=== PATIENT | female | born 1980 | race Caucasian/White ===

== ENCOUNTER 2016-07-11 09:33 | Observation (INO) | payer MEDICAID ==
[~2016-07-11] VITALS: Ht 157.5 cm; Wt 60.0 kg
[~2016-07-11 09:33] MED LIST: ONDANSETRON HCL 4 MG/2 ML VIAL IV PUSH ONE; PREN0.01; PROPOFOL 200 MG/20 ML AMP IV ONE
[2016-07-11 09:35] VITALS: BP 156/87; PULSE 78; RESP 17; TEMP 98.6; O2SAT 99
[2016-07-11 09:45] VITALS: BP 134/90; PULSE 72; RESP 16; O2SAT 100
[2016-07-11] MEDS ORDERED: SODIUM CHLOR 0.9% 1000 ML INJ 1,000 ML IV SCH ×2 (09:59→14:30)
[2016-07-11] MEDS ORDERED: ALUMINUM/MAGNESIUM/SIMETH 30 ML CUP PO ONE (10:00)
[2016-07-11] MEDS ORDERED: SODIUM CHLORIDE 0.9% FLUSH 10 ML FLUSH IV FLUSH PRN ×2 (10:00→15:30)
[2016-07-11] MEDS ORDERED: HYDROmorphone HCL PF 1 MG/ML VIAL IVS ONE (10:00)
[2016-07-11] MEDS ORDERED: LIDOCAINE VISCOUS 2% SOLN 15 ML UDC PO ONE (10:00)
[2016-07-11] MEDS ORDERED: ONDANSETRON HCL 4 MG/2 ML VIAL IVP ONE (10:00)
[2016-07-11 10:19] LABS: AUTOMATED NEUTROPHIL # 4.9 TH/MM3 (1.8-7.7); BASOPHIL # 0.1 TH/MM3 (0-0.2); EOSINOPHIL # 0.1 TH/MM3 (0-0.4); HEMO FLAGS DIFF FINAL; LYMPH % 21.9 % (9.0-44.0); LYMPHOCYTE # 1.5 TH/MM3 (1.0-4.8); MEAN CELL VOLUME 85.7 FL (80.0-100.0); MEAN CORPUSCULAR HEMOGLOBIN 29.2 PG (27.0-34.0); MEAN CORPUSCULAR HGB CONC 34.1 % (32.0-36.0); MONO % 6.7 % (0.0-8.0); NEUT % 69.4 % (16.0-70.0); PLATELET COUNT 360 TH/MM3 (150-450); RED BLOOD COUNT 4.08 MIL/MM3 (4.00-5.30); RED CELL DISTRIBUTION WIDTH 12.7 % (11.6-17.2)
[2016-07-11 10:22] LABS: BACTERIA, URINE RARE /hpf; BLOOD, URINE TRACE (NEG); GLUCOSE,URINE NEG (NEG); KETONE, URINE NEG (NEG); MUCUS URINE FEW /lpf (OCC); NITRITE,URINE NEG (NEG); PH, URINE 5.5 (5.0-8.5); SQUAMOUS EPITHELIAL CELL URINE 15 /hpf (0-5); TRANSITIONAL EPI CELLS, URINE <1 /hpf; URINE COLOR YELLOW (YELLW/STRAW)
[2016-07-11 10:23] LABS: COMMENT (UR) CULTURE INDICATED; CULTURE IF INDICATED CULTURE INDICATED
[2016-07-11] MEDS ORDERED: cefTRIAXone INJ 1,000 MG in SODIUM CHLORIDE 0.9% INJ 100 ML IV ONE (10:30)
[2016-07-11 10:34] LABS: ANION GAP 7 MEQ/L (5-15); AST (GOT) 812 U/L (15-37); BICARBONATE 22.7 MEQ/L (21.0-32.0); BLOOD UREA NITROGEN 6 MG/DL (7-18); CHLORIDE 105 MEQ/L (98-107); GLOMERULAR FILTRATION RATE 146 ML/MIN (>89); POTASSIUM 3.5 MEQ/L (3.5-5.1); SODIUM (NA) 135 MEQ/L (136-145)
[2016-07-11 10:37] LABS: ALKALINE PHOSPHATASE 196 U/L (45-117); ALT (GPT) 694 U/L (10-53); TOTAL BILIRUBIN ADULT 0.9 MG/DL (0.2-1.0)
--- NOTE | 2016-07-11 10:44 | PD ---
HPI Chief Complaint: Abdominal Pain Time Seen by Provider: 09:41 Travel History International Travel<30 days: No Contact w/Intl Traveler<30days: No Traveled to known affect area: No History of Present Illness HPI 36-year-old female 3 para 2 last menstruation 2 days prior arrives with right upper quadrant pain for 2 days. It can be severe at times. There is a sharp quality. When it is severe the patient feels nauseated. No vomiting fever urinary complaint or vaginal bleeding/vaginal discharge reported. Patient has been able to eat. No similar prior events has occurred. She denies a past medical history as well as surgical history. She denies having a primary care provider. There is some radiation to the back on the right side. Cypriot-speaking, translation provided by patient's bilingual son per preference of patient. PFSH Past Medical History Medical History: Denies Significant Hx Influenza Vaccination: No ?: Not LMP: 07/09/16 : 3 Para: 2 Miscarriage: 0 : 0 Past Surgical History Surgical History: No Previous Surgery Social History Alcohol Use: Yes (OCCASINALLY) Tobacco Use: No Substance Use: No Allergies-Medications (Allergen,Severity, Reaction): Coded Allergies: No Known Allergies (Verified Allergy, Mild, 07/12/06) Reported Meds & Prescriptions Reported Meds & Active Scripts Active Reported Vit ( Plus) (Prenat Multivit/Agriculture Specialist/Iron/Folic Ac) Tab Review of Systems Except as stated in HPI: all other systems reviewed are Neg General / Constitutional: No: Fever Gastrointestinal: Positive: Nausea, Abdominal Pain Physical Exam Narrative GENERAL: 36-year-old female pleasant, Cypriot-speaking only, translation services were provided through a online official medical translation services however the patient preferred her son who is bilingual to translate SKIN: Focused skin assessment warm/dry. HEAD: Atraumatic. Normocephalic. EYES: Pupils equal and round. No scleral icterus. No injection or drainage. ENT: No nasal bleeding or discharge. Mucous membranes pink and moist. NECK: Trachea midline. No JVD. CARDIOVASCULAR: Regular rate and rhythm. No murmur appreciated. RESPIRATORY: No accessory muscle use. Clear to auscultation. Breath sounds equal bilaterally. GASTROINTESTINAL: Soft. Positive Dao sign. Percussion along the right flank seems to elicit pain in the anterior abdomen on the right side. Otherwise there is no flank tenderness. MUSCULOSKELETAL: No obvious deformities. No clubbing. No cyanosis. No edema. NEUROLOGICAL: Awake and alert. No obvious cranial nerve deficits. Motor grossly within normal limits. Normal speech. PSYCHIATRIC: Appropriate mood and affect; insight and judgment normal. Data Data Last Documented VS Vital Signs Date Time Temp Pulse Resp B/P Pulse Ox O2 Delivery O2 Flow Rate FiO2 07/11/16 09:45 72 16 134/90 100 Room Air 07/11/16 09:35 98.6 Vital signs reviewed Orders Complete Blood Count With Diff (07/11/16 09:59) Comprehensive Metabolic Panel (07/11/16 09:59) Lipase (07/11/16 09:59) Urinalysis - C+S If Indicated (07/11/16 09:59) Ct Abd/Pel W/O Iv Contrast (07/11/16 09:59) Iv Access Insert/Monitor (07/11/16 09:59) Ecg Monitoring (07/11/16 09:59) Oximetry (07/11/16 09:59) Ondansetron Inj (Zofran Inj) (07/11/16 10:00) Sodium Chlor 0.9% 1000 Ml Inj (Ns 1000 M (07/11/16 09:59) Sodium Chloride 0.9% Flush (Ns Flush) (07/11/16 10:00) Hydromorphone Pf Inj (Dilaudid Pf Inj) (07/11/16 10:00) Al-Mag Hy-Si 40-40-4 Mg/Ml Liq (Mag-Al P (07/11/16 10:00) Lidocaine 2% Viscous (Xylocaine 2% Visco (07/11/16 10:00) Ed Urine Pregnancytest Poc (07/11/16 09:59) Urine Culture (07/11/16 10:03) Ceftriaxone Inj (Rocephin Inj) (07/11/16 10:30) Admit Order (Ed Use Only) (07/11/16 12:23) Labs Laboratory Tests Test 07/11/16 10:03 White Blood Count 7.0 TH/MM3 Red Blood Count 4.08 MIL/MM3 Hemoglobin 11.9 GM/DL Hematocrit 35.0 % Mean Corpuscular Volume 85.7 FL Mean Corpuscular Hemoglobin 29.2 PG Mean Corpuscular Hemoglobin 34.1 % Concent Red Cell Distribution Width 12.7 % Platelet Count 360 TH/MM3 Mean Platelet Volume 8.3 FL Neutrophils (%) (Auto) 69.4 % Lymphocytes (%) (Auto) 21.9 % Monocytes (%) (Auto) 6.7 % Eosinophils (%) (Auto) 1.0 % Basophils (%) (Auto) 1.0 % Neutrophils # (Auto) 4.9 TH/MM3 Lymphocytes # (Auto) 1.5 TH/MM3 Monocytes # (Auto) 0.5 TH/MM3 Eosinophils # (Auto) 0.1 TH/MM3 Basophils # (Auto) 0.1 TH/MM3 CBC Comment DIFF FINAL Differential Comment Urine Color YELLOW Urine Turbidity HAZY Urine pH 5.5 Urine Specific [place] 1.010 Urine Protein NEG mg/dL Urine Glucose (UA) NEG mg/dL Urine Ketones NEG mg/dL Urine Occult Blood TRACE Urine Nitrite NEG Urine Bilirubin NEG Urine Urobilinogen LESS THAN 2.0 MG/DL Urine Leukocyte Esterase LARGE Urine RBC 4 /hpf Urine WBC 19 /hpf Urine Squamous Epithelial 15 /hpf Cells Urine Transitional Epithelial <1 /hpf Cells Urine Amorphous Sediment RARE Urine Bacteria RARE /hpf Urine Mucus FEW /lpf Microscopic Urinalysis Comment CULTURE INDICATED Sodium Level 135 MEQ/L Potassium Level 3.5 MEQ/L Chloride Level 105 MEQ/L Carbon Dioxide Level 22.7 MEQ/L Anion Gap 7 MEQ/L Blood Urea Nitrogen 6 MG/DL Creatinine 0.48 MG/DL Estimat Glomerular Filtration 146 ML/MIN Rate Random Glucose 98 MG/DL Calcium Level 8.2 MG/DL Total Bilirubin 0.9 MG/DL Aspartate Amino Transf 812 U/L (AST/SGOT) Alanine Aminotransferase 694 U/L (ALT/SGPT) Alkaline Phosphatase 196 U/L Total Protein 7.7 GM/DL Albumin 3.9 GM/DL Lipase 129 U/L [facility] Medical Decision Making Medical Screen Exam Complete: Yes Emergency Medical Condition: Yes Medical Record Reviewed: Yes Differential Diagnosis Gastritis, pancreatitis, appendicitis, acute cholecystitis, ascending cholangitis, AAA, perforated viscous, mesenteric ischemia, hepatitis, cystitis, hydronephrosis/hydroureter/nephroureter calculus, mesenteric adenitis, biliary colic Narrative Course CBC & BMP Diagram 07/11/16 10:03 AST 812 ALT 694 Alkaline phosphatase 196 Lipase 129 Urinalysis: UTI present Urine is negative Last 24 hours Impressions Abdomen/Pelvis CT 07/11/16 0959 Signed Impressions: Service Date/Time: Monday, July 11, 2016 10:33 - CONCLUSION: 1. Masslike area within the gallbladder could be a sludgeball versus stone with slight prominence of the common bile duct. 2. Left adnexal mass most likely ovarian and indeterminant could be a complicated cyst. Boone Chamorro MD The patient has patient's LFTs are sufficiently high when coupled with gallbladder abnormality mild gallbladder duct dilation and positive gallbladder Dao sign to warrant admission for further diagnostic evaluation. IV fluids and antiemetics and analgesia ordered. The patient received Rocephin for the presumed UTI. Case discussed with Dr. Potter for general surgery who will consult. Pt to be admitted for probable cholecystitis. Flagyl added. Case d/w Dr Maya for family medicine residency service. Diagnosis Primary Impression: Cholelithiasis Qualified Code: K80.00 - Calculus of gallbladder with cholecystitis without biliary obstruction, unspecified cholecystitis acuity Additional Impressions: LFT elevation Pyuria Admitting Information Admitting Physician Requests: Admit Zaid Clifford MD Jul 11, 2016 10:44
--- NOTE | 2016-07-11 11:03 | RADRPT ---
EXAM DATE/TIME: 07/11/2016 10:33 [facility] COMPARISON: No previous studies available for comparison. INDICATIONS : Abdomen pain. ORAL CONTRAST: No oral contrast ingested. RADIATION DOSE: 5.1 CTDIvol (mGy) MEDICAL HISTORY : None SURGICAL HISTORY : None. ENCOUNTER: Initial ACUITY: 2 days PAIN SCALE: 4/10 LOCATION: Bilateral abdomen. TECHNIQUE: Volumetric scanning of the abdomen and pelvis was performed. Using automated exposure control and ad justment of the mA and/or kV according to patient size, radiation dose was kept as low as reasonably achievable to obtain optimal diagnostic quality images. FINDINGS: CT Abdomen: The liver, spleen, pancreas, kidneys, adrenals are unremarkable. There is no evidence for any appreciable pathological adenopathy, free fluid, or bowel obstruction. The gallbladder demonstra chan an approximate 1.9 cm mass within it possibly a stone versus sludge ball at the most likely etiol ogies and appears slightly distended. Common bile duct measures 8 mm without definite common bile juliana t stones for technique. CT pelvis: There is no evidence for abscess formation, or any significant adenopathy within the pelvi s. There is moderate amount of stool throughout the colon. The appendix appears intact without defini te signs of appendicitis. IUD is identified. There is an approximate 4.5 cm mass in the left adnexa m ost likely ovarian could be a complicated cyst, however is nonspecific. CONCLUSION: 1. Masslike area within the gallbladder could be a sludgeball versus stone with slight prominence of the common bile duct. 2. Left adnexal mass most likely ovarian and indeterminant could be a complicated cyst. Boone Chamorro MD on July 11, 2016 at 10:57 Board Certified Radiologist. This report was verified electronically.
[2016-07-11 12:46] VITALS: BP 130/84; PULSE 75; RESP 16; O2SAT 99
--- NOTE | 2016-07-11 14:12 | HHI.HP ---
HPI Service Family Medicine Primary Care Physician No Primary Care Physician Admission Diagnosis Cholelithiasis, Transaminitis, Poss Cholecystitis Diagnoses: International Travel<30 Days: No Contact w/Intl Traveler<30days: No Known Affected Area: No History of Present Illness Mrs. Moscoso is a 36-year-old female with no significant past medical history presenting to the ED with right upper quadrant abdominal pain. She is strictly Liberian-speaking and interview was performed with interpretation service. She states that for approximately 2 days she has had right upper quadrant pain up to 8 out of 10 on the pain scale with a sharp like quality radiating to her back. Prior to the pain she had no medial high in meat and bread. The pain has been constant since the meal and she has been taking Advil without relief. She endorses some mild nausea but denies any vomiting or diarrhea. She states that she has never had any pain like this before and denies any prior abdominal surgery. Otherwise she has no complaints and denies any fevers, chills, shortness of breath, chest pain, or calf tenderness (Chirag Bright MD R1) Review of Systems Constitutional: DENIES: Fever, Chills Eyes: DENIES: Diplopia Ears, nose, mouth, throat: DENIES: Throat pain, Running Nose Respiratory: DENIES: Cough, Shortness of breath Cardiovascular: DENIES: Chest pain Gastrointestinal: COMPLAINS OF: Abdominal pain, Nausea, DENIES: Diarrhea, Vomiting Genitourinary: DENIES: Dysuria Musculoskeletal: DENIES: Joint pain Integumentary: DENIES: Rash Neurologic: DENIES: Headache (Chirag Bright MD R1) Past Family Social History Past Medical History Denies past medical history Past Surgical History Denies past surgical history Reported Medications Patient reports that she is on control, but cannot recall the name. ( Chirag Bright MD R1) Allergies: Coded Allergies: No Known Allergies (Verified , 07/12/06) Family History Denies family medical history Social History She denies any smoking, alcohol, or illicit drug history. Patient is strictly Liberian-speaking. Full code. (Chirag Bright MD R1) Physical Exam Vital Signs Vital Signs Date Time Temp Pulse Resp B/P Pulse Ox O2 Delivery O2 Flow Rate FiO2 07/11/16 12:46 75 16 130/84 99 Room Air 07/11/16 09:45 72 16 134/90 100 Room Air 07/11/16 09:35 98.6 78 17 156/87 99 Physical Exam GENERAL: Well-nourished, well-developed patient 36-year-old female lying in bed in mild discomfort.. SKIN: Warm and dry. No rash. HEENT: Atraumatic, normocephalic with EOMI. PERRLA. Oropharynx clear without erythema or exudate. Moist mucous membranes with midline uvula. No palpable LAD. No rhinorrhea. CARDIOVASCULAR: Regular rate and rhythm without obvious murmurs, gallops, or rubs. RESPIRATORY: Clear to auscultation bilaterally with no CRW. No increased work of breathing. GASTROINTESTINAL: Abdomen soft, nondistended with positive bowel sounds. Patient tender to palpation in the right upper quadrant to mild palpation with radiation to her back. Positive Dao sign. Nonternder at McBurney's point. No masses appreciated. No rebound tenderness. MUSCULOSKELETAL: No cyanosis or edema. Strength grossly WNL. BACK: Nontender without obvious deformity. No CVA tenderness. NEURO/PSYCH: Afocal. Awake, alert, and oriented x3. Laboratory Laboratory Tests Test 07/11/16 10:03 White Blood Count 7.0 Red Blood Count 4.08 Hemoglobin 11.9 Hematocrit 35.0 Mean Corpuscular Volume 85.7 Mean Corpuscular Hemoglobin 29.2 Mean Corpuscular Hemoglobin 34.1 Concent Red Cell Distribution Width 12.7 Platelet Count 360 Mean Platelet Volume 8.3 Neutrophils (%) (Auto) 69.4 Lymphocytes (%) (Auto) 21.9 Monocytes (%) (Auto) 6.7 Eosinophils (%) (Auto) 1.0 Basophils (%) (Auto) 1.0 Neutrophils # (Auto) 4.9 Lymphocytes # (Auto) 1.5 Monocytes # (Auto) 0.5 Eosinophils # (Auto) 0.1 Basophils # (Auto) 0.1 CBC Comment DIFF FINAL Differential Comment Urine Color YELLOW Urine Turbidity HAZY Urine pH 5.5 Urine Specific [place] 1.010 Urine Protein NEG Urine Glucose (UA) NEG Urine Ketones NEG Urine Occult Blood TRACE Urine Nitrite NEG Urine Bilirubin NEG Urine Urobilinogen LESS THAN 2.0 Urine Leukocyte Esterase LARGE Urine RBC 4 Urine WBC 19 Urine Squamous Epithelial 15 Cells Urine Transitional Epithelial <1 Cells Urine Amorphous Sediment RARE Urine Bacteria RARE Urine Mucus FEW Microscopic Urinalysis Comment CULTURE INDICATED Sodium Level 135 Potassium Level 3.5 Chloride Level 105 Carbon Dioxide Level 22.7 Anion Gap 7 Blood Urea Nitrogen 6 Creatinine 0.48 Estimat Glomerular Filtration 146 Rate Random Glucose 98 Calcium Level 8.2 Total Bilirubin 0.9 Aspartate Amino Transf 812 (AST/SGOT) Alanine Aminotransferase 694 (ALT/SGPT) Alkaline Phosphatase 196 Total Protein 7.7 Albumin 3.9 Lipase 129 Date/Time Procedure Status Source Growth 07/11/16 10:03 Urine Culture Received Urine Clean Catch Pending (Chirag Bright MD R1) Result Diagram: 07/11/16 1003 07/11/16 1003 Imaging Last 72 hours Impressions Abdomen/Pelvis CT 07/11/16 0959 Signed Impressions: Service Date/Time: Monday, July 11, 2016 10:33 - CONCLUSION: 1. Masslike area within the gallbladder could be a sludgeball versus stone with slight prominence of the common bile duct. 2. Left adnexal mass most likely ovarian and indeterminant could be a complicated cyst. Boone Chamorro MD (Chirag Bright MD R1) Assessment and Plan Assessment and Plan Mrs. Moscoso is a 36-year-old female with no significant past medical history presenting to the ED with left upper quadrant abdominal pain concerning for cholecystitis. General surgery was consulted and will take patient to the operating room tonight for laparoscopic cholecystectomy. Code Status Full Discussed Condition With Dr. Clifford, ER physician Dr. Livier Maya (Chirag Bright MD R1) Attending Attestation THIS CASE WAS DISCUSSED WITH THE RESIDENT PHYSICIANS. I HAVE REVIEWED THE RECORD AND AGREE WITH THE ABOVE NOTE AND PLAN OF CARE WAS DISCUSSED. I HAVE AUTHORIZED THE ORDER FOR ADMISSION TO AN IN-PATIENT STATUS. (Germán Maier MD) Problem List: (1) Acute cholecystitis Status: Acute Plan: Patient presenting with right upper quadrant pain and tenderness with CT showing masslike area in the gallbladder concerning for gallstones/sludge. Gen. surgery was consulted and will proceed with laparoscopic versus open cholecystectomy. CBC: WBC 7, H/H 11.9/35, platelets 360 CMP: Sodium 135, AST 81 2, ALT 694, alkaline phosphatase 196 CT abdomen and pelvis: Masslike area within the gallbladder. Possible sludge ball versus stone with slight prominence of the common bile duct. Left adnexal mass likely ovarian in indeterminate; could be complicated cyst. Gen. surgery consulted, appreciate recommendations * Per Dr. Potter, he will plan for laparoscopic versus open cholecystectomy tonight. Medications: Ceftriaxone, Flagyl, Dilaudid received in ER Ceftriaxone 1 mg daily (07/11- ) Flagyl 500 milligrams every 8 hours (07/11- ) Percocet when necessary for pain Normal saline at 100 mL per hour as patient will be nothing by mouth (2) LFT elevation Status: Acute Plan: LFT elevations likely due to acute cholecystitis. Please see plan as above (3) UTI (urinary tract infection) Status: Acute Plan: Patient with urinalysis concerning for possible UTI. Medical team will cover with ceftriaxone. UA: Large leukocyte esterase, 4 rbc, 19 WBC, rare bacteria, trace occult blood UC: Pending Medications: Ceftriaxone 1 g daily (07/11- ) (4) Nutrition, metabolism, and development symptoms Status: Acute Plan: Fluids: Normal saline at 100 mL per hour as patient is nothing by mouth Diet: Nothing by mouth prior to procedure Electrolytes: Sodium 135, continue to monitor DVT prophylaxis: CANDACE/SCDs, pharmacologic prophylaxis contraindicated prior to procedure Prophylaxis: Incentive spirometry with Acapella, Zofran when necessary for nausea or vomiting, Benadryl when necessary for itching, Gloria-Colace when necessary for constipation CM, PT consulted (Chirag Bright MD R1) Physician Certification 2 Midnight Certification Type: Admission for Inpatient Services Order for Inpatient Services The services are ordered in accordance with Medicare regulations or non- Medicare payer requirements, as applicable. In the case of services not specified as inpatient-only, they are appropriately provided as inpatient services in accordance with the 2-midnight benchmark. Estimated LOS (days): 3 3 days is the estimated time the patient will need to remain in the hospital, assuming treatment plan goals are met and no additional complications. Post-Hospital Plan: Home (Chirag Bright MD R1) Chirag Bright MD R1 Jul 11, 2016 14:12 Germán Maier MD Jul 12, 2016 10:51
--- NOTE | 2016-07-11 15:14 | PD.CONS ---
HPI Service General Surgery Consult Requested By Reason for Consult Abdominal pain Primary Care Physician No Primary Care Physician History of Present Illness The patient is a 36-year-old Romansh-speaking female who presents with abdominal pain. Translation is provided by the [employer] mental hygiene consultant service. The patient relates that she has had abdominal pain in the right upper quadrant radiating to the back for about 2 days associated with nausea. She has never had any episodes like this in the past. She denies emesis or diarrhea. No previous abdominal surgical history. The pain relented only after she received pain medication at the hospital. She was noted to have elevation of transaminases and alkaline phosphatase with normal bilirubin. CT of the abdomen and pelvis shows a 1.9 cm sludge ball or stone in the gallbladder with mild gallbladder distention. Review of Systems Constitutional: DENIES: Fever, Chills Eyes: DENIES: Eye inflammation, Eye pain Respiratory: DENIES: Cough, Wheezing Cardiovascular: DENIES: Chest pain, Palpitations Gastrointestinal: COMPLAINS OF: Abdominal pain, Nausea, DENIES: Black stools Integumentary: DENIES: Pruritus, Rash Neurologic: DENIES: Localized weakness, Paresthesias Past Family Social History Past Medical History None Past Surgical History None Reported Medications Vitamins Allergies: Coded Allergies: No Known Allergies (Verified Allergy, Mild, 07/12/06) Active Ordered Medications Current Medications Medications (Trade) Dose Ordered Sig/Kaelyn Route Start Time Stop Time Status Last Admin Sodium Chloride 2 ml 2 ml UNSCH PRN IV FLUSH 07/11/16 10:00 (NS 1000 ml Inj) 1,000 ml @ 125 mls/hr Q8H IV 07/11/16 14:30 07/11/16 14:52 Family History Noncontributory Social History Rare alcohol use. No tobacco or drug use. Physical Exam Vital Signs Vital Signs Date Time Temp Pulse Resp B/P Pulse Ox O2 Delivery O2 Flow Rate FiO2 07/11/16 12:46 75 16 130/84 99 Room Air 07/11/16 09:45 72 16 134/90 100 Room Air 07/11/16 09:35 98.6 78 17 156/87 99 Physical Exam GENERAL: Awake and alert. No acute distress. Cooperative. HEAD: Normocephalic. Atraumatic. EYES: Pupils equal round and reactive to light bilaterally. No scleral icterus. ENT: Moist oral mucosa. NECK: Trachea midline. CHEST: Lungs clear to auscultation bilaterally with no wheezing or rhonchi. No respiratory distress. CARDIOVASCULAR: Regular rate and rhythm. ABDOMEN: Round. Moderate tenderness to palpation in the right upper quadrant with positive Dao sign. EXTREMITIES: No cyanosis or edema. SKIN: Warm, dry, nonjaundiced. Laboratory Laboratory Tests Test 07/11/16 10:03 White Blood Count 7.0 Red Blood Count 4.08 Hemoglobin 11.9 Hematocrit 35.0 Mean Corpuscular Volume 85.7 Mean Corpuscular Hemoglobin 29.2 Mean Corpuscular Hemoglobin 34.1 Concent Red Cell Distribution Width 12.7 Platelet Count 360 Mean Platelet Volume 8.3 Neutrophils (%) (Auto) 69.4 Lymphocytes (%) (Auto) 21.9 Monocytes (%) (Auto) 6.7 Eosinophils (%) (Auto) 1.0 Basophils (%) (Auto) 1.0 Neutrophils # (Auto) 4.9 Lymphocytes # (Auto) 1.5 Monocytes # (Auto) 0.5 Eosinophils # (Auto) 0.1 Basophils # (Auto) 0.1 CBC Comment DIFF FINAL Differential Comment Urine Color YELLOW Urine Turbidity HAZY Urine pH 5.5 Urine Specific [place] 1.010 Urine Protein NEG Urine Glucose (UA) NEG Urine Ketones NEG Urine Occult Blood TRACE Urine Nitrite NEG Urine Bilirubin NEG Urine Urobilinogen LESS THAN 2.0 Urine Leukocyte Esterase LARGE Urine RBC 4 Urine WBC 19 Urine Squamous Epithelial 15 Cells Urine Transitional Epithelial <1 Cells Urine Amorphous Sediment RARE Urine Bacteria RARE Urine Mucus FEW Microscopic Urinalysis Comment CULTURE INDICATED Sodium Level 135 Potassium Level 3.5 Chloride Level 105 Carbon Dioxide Level 22.7 Anion Gap 7 Blood Urea Nitrogen 6 Creatinine 0.48 Estimat Glomerular Filtration 146 Rate Random Glucose 98 Calcium Level 8.2 Total Bilirubin 0.9 Aspartate Amino Transf 812 (AST/SGOT) Alanine Aminotransferase 694 (ALT/SGPT) Alkaline Phosphatase 196 Total Protein 7.7 Albumin 3.9 Lipase 129 Date/Time Procedure Status Source Growth 07/11/16 10:03 Urine Culture Received Urine Clean Catch Pending Result Diagram: 07/11/16 1003 07/11/16 1003 Imaging Last Impressions Abdomen/Pelvis CT 4/16/17 0959 Signed Impressions: Service Date/Time: Monday, July 11, 2016 10:33 - CONCLUSION: 1. Masslike area within the gallbladder could be a sludgeball versus stone with slight prominence of the common bile duct. 2. Left adnexal mass most likely ovarian and indeterminant could be a complicated cyst. Boone Chamorro MD Assessment and Plan Assessment and Plan This is a 36-year-old female with a presentation consistent with acute cholecystitis evidenced by persistent right upper quadrant pain associated with right upper quadrant tenderness and a CT scan which shows that the least gallstones or sludge. She also had elevation of transaminases likely related to gallbladder inflammation. I recommend to proceed with laparoscopic, possible open, cholecystectomy. I discussed the risks and benefits and details of the procedure with the patient via the mental hygiene consultant. She understands and desires to proceed. She has received Rocephin and Flagyl in the emergency department. Discussed Condition With Dr. Cordero, Иван Coombs MD Jul 11, 2016 15:14
[2016-07-11] MEDS ORDERED: metroNIDAZOLE 500 MG INJ 100 ML IV ONE (15:15)
[2016-07-11] MEDS: SODIUM CHLOR 0.9% 1000 ML INJ 1,000 ML IV SCH ×2 (15:28→23:05)
[2016-07-11] MEDS ORDERED: diphenhydrAMINE HCL 50 MG/ML VIAL IV PRN (15:30)
[2016-07-11] MEDS ORDERED: ONDANSETRON HCL 4 MG/2 ML VIAL IV PRN (15:30)
[2016-07-11 15:40] VITALS: BP 127/78; PULSE 68; RESP 18; TEMP 99; O2SAT 95
[2016-07-11] MEDS: metroNIDAZOLE 500 MG INJ 100 ML IV SCH ×2 (15:46→22:57)
[2016-07-11] MEDS ORDERED: BUPIVACAINE/EPINEPHRINE 0.25% PF 30 ML VIAL ONE (16:45)
[2016-07-11] MEDS ORDERED: oxyCODONE/ACETAMINOPHEN 5 MG/325 MG TAB PO PRN ×2 (18:45)
--- NOTE | 2016-07-11 18:51 | PD.OP ---
cc: Иван Potter MD Operative Report Date of Surgery: Jul 11, 2016 Preoperative Diagnosis: (1) Acute cholecystitis Postoperative Diagnosis: (1) Acute cholecystitis Procedure: Laparoscopic cholecystectomy Anesthesia: GETA Surgeon: Иван Potter Service Car Operator(s): Preet BARGER Operation and Findings: Complications: None apparent EBL: 100 cc Operative findings: The gallbladder was severely inflamed and distended. It required decompression which showed clear bile consistent with hydrops. There were 2 very large stones. There is dense adhesions from the omentum to the gallbladder. Procedure in detail: The patient was taken to the operating room and placed in the supine position. General endotracheal anesthesia was induced. The abdomen was prepped and draped in usual sterile fashion and a surgical timeout was performed to verify correct patient procedure and site. Appropriate perioperative antibiotics were administered. Local anesthetic was injected in the skin and subcutaneous tissue superior to the umbilicus and a 5 mm incision performed. The abdomen was entered using the Optiview 5 mm trocar with direct laparoscopic visualization. The abdomen was then insufflated to 15 mmHg with CO2 gas which the patient tolerated well. Next a 12 mm port was placed in the epigastrium and two 5 mm ports in the right upper quadrant and right lateral abdomen. The patient was placed in reverse Trendelenburg position and turned slightly to the left. Attention was turned to the right upper quadrant. The gallbladder was very distended and tense with dense omental adhesions. Some of the omental adhesions were taken down electrocautery. The gallbladder was then decompressed by entering it with the hook electrocautery and using the suction-personnel technician to suction clear bile from the gallbladder. Using grasped and retracted cephalad. Further omental adhesions were taken down. Some of the adhesions were chronic and dense. The infundibulum was retracted laterally to expose Calot's triangle. Prolonged careful dissection with focal electrocautery suction personnel technician and blunt dissection with [place] was used to delineate the cystic duct entering the gallbladder directly. The cystic artery had been divided with electrocautery. On the posterior portion of the infundibulum there were some small vessels presumably omental from adhesions which were freed from the gallbladder. 2 clips were then placed proximally on the cystic duct one distally and it was transected. The gallbladder was then removed from the liver bed using electrocautery. Hemostasis was achieved. The gallbladder was then removed from the abdomen using an Endo Catch bag. There was some oozing from the omentum and clips were placed on a couple of areas. 2 g of Rodrigue was placed in the omentum and the undersurface of the liver. There was then adequate hemostasis. The clips were in place on the cystic duct with no bleeding or bile leakage. At this point, the abdomen was allowed to desufflate and trochars were removed. The fascia at the 12 mm port site was closed with 0 Vicryl suture. Skin was closed with subcuticular 4-0 Monocryl as well as Dermabond. The patient tolerated the procedure well and was extubated and taken to PACU in stable condition. All sponge and instrument counts were correct. Иван Potter MD Jul 11, 2016 18:50
[2016-07-11] MEDS ORDERED: fentaNYL CITRATE 250 MCG/5 ML AMP ONE (19:18)
[2016-07-11] MEDS ORDERED: *morphine SULFATE 8 MG/ML PERIprocedure ONLY ONE (19:26)
[2016-07-11] MEDS ORDERED: DO NOT ADM ANY ANTICOAGULANT DRUGS PRN (19:30)
[2016-07-11] MEDS: SODIUM CHLORIDE 0.9% FLUSH 10 ML FLUSH IV FLUSH SCH (20:12)
[2016-07-11 21:00] VITALS: BP_SYST 131; BP_SYST 158; BP_DIAS 81; BP_DIAS 93; PULSE 76; PULSE 83; RESP 16; RESP 18; TEMP 97.4; O2SAT 76; O2SAT 93
[2016-07-11] MEDS ORDERED: DOCUSATE SODIUM 50 MG/SENNA 8.6 MG TAB PO PRN (22:00)
[2016-07-11 22:12] VITALS: O2SAT 99
[2016-07-11] MEDS: MORPHINE SULFATE 4 MG/ML INJ IV PRN (22:56)
[2016-07-12] VITALS: BP 121/73; PULSE 82; RESP 19; TEMP 98.3; O2SAT 98
[2016-07-12 04:00] VITALS: BP 119/62; PULSE 82; RESP 19; TEMP 98.6; O2SAT 97
[2016-07-12] MEDS: MORPHINE SULFATE 4 MG/ML INJ IV PRN ×2 (04:13→08:41)
[2016-07-12] MEDS: SODIUM CHLOR 0.9% 1000 ML INJ 1,000 ML IV SCH (06:29)
[2016-07-12 07:45] LABS: BASOPHIL % 0.1 % (0.0-2.0); HEMATOCRIT 30.5 % (35.0-46.0); HEMO FLAGS DIFF FINAL; LYMPH % 10.7 % (9.0-44.0); LYMPHOCYTE # 1.3 TH/MM3 (1.0-4.8); MEAN CELL VOLUME 86.2 FL (80.0-100.0); MEAN CORPUSCULAR HGB CONC 34.8 % (32.0-36.0); MONO % 4.6 % (0.0-8.0); NEUT % 84.6 % (16.0-70.0); PLATELET COUNT 334 TH/MM3 (150-450); RED BLOOD COUNT 3.54 MIL/MM3 (4.00-5.30); RED CELL DISTRIBUTION WIDTH 13.1 % (11.6-17.2); WHITE BLOOD COUNT 11.9 TH/MM3 (4.0-11.0)
[2016-07-12 08:00] VITALS: BP 99/54; PULSE 77; RESP 18; TEMP 98.2; O2SAT 95
[2016-07-12 08:09] LABS: ALKALINE PHOSPHATASE 177 U/L (45-117); ALT (GPT) 415 U/L (10-53); ANION GAP 6 MEQ/L (5-15); AST (GOT) 229 U/L (15-37); BICARBONATE 24.6 MEQ/L (21.0-32.0); BLOOD UREA NITROGEN 6 MG/DL (7-18); CHLORIDE 106 MEQ/L (98-107); GLOMERULAR FILTRATION RATE 136 ML/MIN (>89); POTASSIUM 3.3 MEQ/L (3.5-5.1); SODIUM (NA) 137 MEQ/L (136-145); TOTAL BILIRUBIN ADULT 0.5 MG/DL (0.2-1.0)
[2016-07-12] MEDS ORDERED: OXYC1TAB63 PO (08:16)
--- NOTE | 2016-07-12 08:18 | HHI.PR ---
Subjective Subjective Notes Sore but not using any pain meds. Tolerating clears. Objective Vitals/I&O Vital Signs Date Time Temp Pulse Resp B/P Pulse Ox O2 Delivery O2 Flow Rate FiO2 07/12/16 04:00 98.6 82 19 119/62 97 07/11/16 22:12 Nasal Cannula 2.00 Labs Laboratory Tests Test 07/11/16 07/12/16 10:03 07:12 White Blood Count 7.0 11.9 Red Blood Count 4.08 3.54 Hemoglobin 11.9 10.6 Hematocrit 35.0 30.5 Mean Corpuscular Volume 85.7 86.2 Mean Corpuscular Hemoglobin 29.2 30.0 Mean Corpuscular Hemoglobin 34.1 34.8 Concent Red Cell Distribution Width 12.7 13.1 Platelet Count 360 334 Mean Platelet Volume 8.3 8.4 Neutrophils (%) (Auto) 69.4 84.6 Lymphocytes (%) (Auto) 21.9 10.7 Monocytes (%) (Auto) 6.7 4.6 Eosinophils (%) (Auto) 1.0 0.0 Basophils (%) (Auto) 1.0 0.1 Neutrophils # (Auto) 4.9 10.0 Lymphocytes # (Auto) 1.5 1.3 Monocytes # (Auto) 0.5 0.5 Eosinophils # (Auto) 0.1 0.0 Basophils # (Auto) 0.1 0.0 CBC Comment DIFF FINAL DIFF FINAL Differential Comment Urine Color YELLOW Urine Turbidity HAZY Urine pH 5.5 Urine Specific [place] 1.010 Urine Protein NEG Urine Glucose (UA) NEG Urine Ketones NEG Urine Occult Blood TRACE Urine Nitrite NEG Urine Bilirubin NEG Urine Urobilinogen LESS THAN 2.0 Urine Leukocyte Esterase LARGE Urine RBC 4 Urine WBC 19 Urine Squamous Epithelial 15 Cells Urine Transitional Epithelial <1 Cells Urine Amorphous Sediment RARE Urine Bacteria RARE Urine Mucus FEW Microscopic Urinalysis Comment CULTURE INDICATED Sodium Level 135 137 Potassium Level 3.5 3.3 Chloride Level 105 106 Carbon Dioxide Level 22.7 24.6 Anion Gap 7 6 Blood Urea Nitrogen 6 6 Creatinine 0.48 0.51 Estimat Glomerular Filtration 146 136 Rate Random Glucose 98 130 Calcium Level 8.2 7.9 Total Bilirubin 0.9 0.5 Aspartate Amino Transf 812 229 (AST/SGOT) Alanine Aminotransferase 694 415 (ALT/SGPT) Alkaline Phosphatase 196 177 Total Protein 7.7 6.4 Albumin 3.9 3.0 Lipase 129 Date/Time Procedure Status Source Growth 07/11/16 10:03 Urine Culture Received Urine Clean Catch Pending Radiology Last Impressions Abdomen/Pelvis CT 07/11/16 0959 Signed Impressions: Service Date/Time: Monday, July 11, 2016 10:33 - CONCLUSION: 1. Masslike area within the gallbladder could be a sludgeball versus stone with slight prominence of the common bile duct. 2. Left adnexal mass most likely ovarian and indeterminant could be a complicated cyst. Boone Chamorro MD Narrative Exam NAD CATASYS c /d/i A/P Assessment and Plan 36 yo F POD 1 s/p lap aparna for acute calculous cholecystitis Stable post op. No nausea. Pain controlled. Ok for dc home from my standpoint. Rx on chart. F/u in two weeks- call office for appt. Иван Potter MD Jul 12, 2016 08:18
[2016-07-12 08:31] VITALS: O2SAT 97
[2016-07-12] MEDS: SODIUM CHLORIDE 0.9% FLUSH 10 ML FLUSH IV FLUSH SCH (08:42)
[2016-07-12] MEDS ORDERED: POTASSIUM CHLORIDE 20 MEQ CONTROLLED RELEASE TAB PO ONE (09:00)
[2016-07-12] MEDS ORDERED: POTASSIUM CHLORIDE 10 MEQ CONTROLLED RELEASE TAB PO ONE (09:45)
--- NOTE | 2016-07-12 10:51 | HHI.FPPN ---
Subjective Remarks Patient is postop day #1 laparoscopic cholecystectomy for acute calculus cholecystitis. She states that she is doing relatively well this morning, has some minor pain at the surgical site however has not required the use of pain medication. She is tolerating a regular diet without nausea or vomiting. She denies any fevers or chills. She denies any shortness of breath. She denies any palpitations or chest pain. She is cleared for discharge per surgery. Review of her CT scan shows a large, left-sided pelvic cyst that could be ovarian in origin, this has not been worked up yet. In summary this is a 36-year-old [place]-speaking female who presents to the emergency department with right upper quadrant abdominal pain and was found to have cholelithiasis with possible cholecystitis. She was evaluated by surgery and taken to the operating room later that evening for removal of her gallbladder. Past Medical History Denies past medical history Past Surgical History Denies past surgical history Reported Medications Patient reports that she is on control, but cannot recall the name. Allergies: Coded Allergies: No Known Allergies (Verified , 07/12/06) Family History Denies family medical history Social History She denies any smoking, alcohol, or illicit drug history. Patient is strictly [place]-speaking. Full code. Objective Vitals Vital Signs Date Time Temp Pulse Resp B/P Pulse Ox O2 Delivery O2 Flow Rate FiO2 07/12/16 08:46 18 07/12/16 08:31 97 21 07/12/16 08:00 98.2 77 18 99/54 95 07/12/16 04:00 98.6 82 19 119/62 97 07/12/16 00:00 98.3 82 19 121/73 98 07/11/16 22:12 99 Nasal Cannula 2.00 07/11/16 21:00 97.4 83 18 158/93 93 07/11/16 21:00 97.4 76 16 131/81 76 07/11/16 20:00 79 16 138/86 99 Nasal Cannula 2 07/11/16 19:39 16 07/11/16 19:30 78 16 126/86 99 Nasal Cannula 2 07/11/16 19:15 74 16 151/90 100 Nasal Cannula 2 07/11/16 19:00 77 16 146/91 100 Nasal Cannula 2 07/11/16 18:56 98.2 86 10 138/90 100 Nasal Cannula 2 07/11/16 16:30 98 07/11/16 15:40 99.0 68 18 127/78 95 07/11/16 12:46 75 16 130/84 99 Room Air I/O 07/11/16 07/11/16 07/11/16 07/12/16 07/12/16 07/12/16 07:00 15:00 23:00 07:00 15:00 23:00 Intake Total 600 ml 1175 ml Output Total 100 ml 400 ml Balance 500 ml 775 ml Intake IV Total 1175 ml Other 600 ml Output Urine Total 400 ml Estimated Blood Loss 100 ml Result Diagram: 07/12/16 0712 07/12/16 0712 Imaging Last 48 hours Impressions Abdomen/Pelvis CT 07/11/16 0959 Signed Impressions: Service Date/Time: Monday, July 11, 2016 10:33 - CONCLUSION: 1. Masslike area within the gallbladder could be a sludgeball versus stone with slight prominence of the common bile duct. 2. Left adnexal mass most likely ovarian and indeterminant could be a complicated cyst. Boone Chamorro MD Objective Remarks GENERAL: Well-nourished, well-developed patient 36-year-old female sitting up in chair next to bed in no obvious distress SKIN: Warm and dry. No rash. CARDIOVASCULAR: Regular rate and rhythm without obvious murmurs, gallops, or rubs. RESPIRATORY: Clear to auscultation bilaterally with no CRW. No increased work of breathing. GASTROINTESTINAL: Abdomen soft, nondistended. Dressings as surgical sites are clean/dry/intact NEURO/PSYCH: Afocal. Awake, alert, and oriented x3. A/P Assessment and Plan Mrs. Moscoso is a 36-year-old female with no significant past medical history presenting to the ED with left upper quadrant abdominal pain concerning for cholecystitis. General surgery was consulted and will take patient to the operating room tonight for laparoscopic cholecystectomy. Discharge Planning Likely discharge later today after ovarian cyst was evaluated Problem List: (1) Acute cholecystitis Status: Acute Plan: Secondary to obstructive cholelithiasis versus sludge of the gallbladder Currently postop day #1 arthroscopic cholecystectomy per general surgery - Antibiotics have been discontinued - Liver function testing is trending down - She is cleared for discharge from surgical standpoint with follow-up in [address] abdomen and pelvis: Masslike area within the gallbladder. Possible sludge ball versus stone with slight prominence of the common bile duct. Left adnexal mass likely ovarian in indeterminate; could be complicated cyst. (2) UTI (urinary tract infection) Status: Acute Plan: Patient with urinalysis concerning for possible UTI. Started on ceftriaxone due to cholecystitis as above - We will finish a 3 day course of ciprofloxacin as an outpatient - Urine culture is still pending (3) Ovarian cyst Status: Acute Plan: Noted on original CT scan is a left adnexal mass most likely ovarian an indeterminate - Could be a complicated cyst, however given its size and her lack of primary care follow-up we will further evaluate this Transabdominal and transvaginal ultrasound ordered - CA-125 ordered - CEA ordered (4) Nutrition, metabolism, and development symptoms Status: Acute Plan: Fluids: Fluids discontinued, oral intake is adequate Diet: Regular diet Electrolytes: Monitor and replete as needed DVT prophylaxis: CANDACE/SCDs, pharmacologic prophylaxis contraindicated prior to procedure Germán Maier MD Jul 12, 2016 10:51
[2016-07-12] MEDS ORDERED: cefTRIAXone INJ 1,000 MG in SODIUM CHLORIDE 0.9% INJ 100 ML IV SCH (11:00)
[2016-07-12] MEDS ORDERED: CIPR250T52 PO (11:46)
--- NOTE | 2016-07-12 11:46 | HHI.DCPOC ---
Discharge Care Plan Diagnosis: (1) Acute cholecystitis (2) UTI (urinary tract infection) (3) Ovarian cyst Goals to Promote Your Health * To prevent worsening of your condition and complications * To maintain your health at the optimal level Directions to Meet Your Goals Take your medications as prescribed Follow your dietary instruction Follow activity as directed Keep your appointments as scheduled Take your immunizations and boosters as scheduled If your symptoms worsen call your PCP, if no PCP go to Urgent Care Center or Emergency Room Smoking is Dangerous to Your Health. Avoid second hand smoke Call the 24-hour hour crisis hotline for domestic abuse at Rand Wallace MD R3 Jul 12, 2016 11:46
[2016-07-12 12:00] VITALS: BP 115/73; PULSE 79; RESP 18; TEMP 98; O2SAT 97
--- NOTE | 2016-07-12 13:33 | RADRPT ---
EXAM DATE/TIME: 07/12/2016 12:07 [facility] COMPARISON: CT ABDOMEN & PELVIS W/O CONTRAST, July 11, 2016, 10:33. INDICATIONS : Left adnexa cyst/mass seen on CT. MEDICAL HISTORY : Abdominal pain. SURGICAL HISTORY : None. ENCOUNTER: Initial ACUITY: 2 days PAIN SCORE: 6/10 LOCATION: Bilateral pelvis MEASUREMENTS: UTERUS: 8.4 x 5.1 x 3.4 cm ENDOMETRIAL STRIPE: 3 mm RIGHT OVARY: 3.2 x 2.8 x 1.7 cm LEFT OVARY: 2.6 x 2.0 x 0.9 cm FINDINGS: UTERUS: The myometrium has homogeneous echotexture without mass. IUD in place. RIGHT OVARY: Ovary contains no mass or significant cystic lesion. LEFT OVARY: Ovary contains no mass or significant cystic lesion. There is a cystic lesion within the left adnexal region measuring 3.8 x 3.9 x 3.6 cm which is indeterminate. MISCELLANEOUS: Trace free fluid is noted within the left adnexal region and within the cul-de-sac . CONCLUSION: Cystic left adnexal mass measuring 3.8 x 3.9 x 3.6 cm which is indeterminate. Trace f ree fluid within the left adnexal region and cul-de-sac. Uterus and right ovary are unremarkable. Jordy Kraus MD on July 12, 2016 at 13:27 Board Certified Radiologist. This report was verified electronically.
--- NOTE | 2016-07-12 14:36 | HHI.FPPN ---
Addendum to progress note ADDENDUM Reason for addendum: Additonal documentation Additional information Discussed pelvic ultrasound findings with Dr. Kraus, radiologist. Left adnexal mass likely simple cyst versus lymphocele. No further workup needed at this time. He recommended repeat outpatient pelvic ultrasound in 3 months. Rand Wallace MD R3 Jul 12, 2016 14:36
[2016-07-12 16:00] VITALS: BP 108/68; PULSE 76; RESP 18; TEMP 98.4; O2SAT 98
== END 2016-07-12 16:45 | disposition home or self-care (01) ==
LOC: NEPC 09:33 → NEDA 12:25 → NEPFCDU 15:17 → INTOOBSV 15:40 → OBSVTOIN 15:40 → N06A 20:11 → UNDODISIN 07-12 16:45
PROVIDERS: ADMIT Family Medicine; ATTEND Family Medicine
DX: K80.12 Calculus of gallbladder with acute and chronic cholecystitis without obstruction (principal); K66.0 Peritoneal adhesions (postprocedural) (postinfection); R74.0 Nonspecific elevation of levels of transaminase and lactic acid dehydrogenase [LDH]; N39.0 Urinary tract infection, site not specified; R79.89 Other specified abnormal findings of blood chemistry; N83.209 Unspecified ovarian cyst, unspecified side
CPT/HCPCS: 47562; 74176; 76856; 80053; 81001; 82378; 83690; 83735; 84703; 85025; 86304; 87086; 88304; 94150; 94667; 94668; 96365; 96366; 96375; 97163; 99285; J0696; J1170; J2270; J2405; J3010; J7030

== ENCOUNTER 2016-12-12 09:24 | Emergency (ER) | payer MEDICAID ==
[~2016-12-12] VITALS: Ht 160 cm; Wt 60.0 kg
[~2016-12-12 09:24] MED LIST changes: +CIPR250T52 PO; -ONDANSETRON HCL 4 MG/2 ML VIAL IV PUSH ONE; +OXYC1TAB63 PO; -PROPOFOL 200 MG/20 ML AMP IV ONE
[2016-12-12 09:26] VITALS: BP 123/74; PULSE 69; RESP 15; TEMP 98.5; O2SAT 99
--- NOTE | 2016-12-12 09:44 | PD ---
HPI Chief Complaint: ENT Complaint Time Seen by Provider: 09:32 Travel History International Travel<30 days: No Contact w/Intl Traveler<30days: No Traveled to known affect area: No History of Present Illness HPI The patient is a 36-year-old female who presents to the emergency Department for right ear pain of 4 days' duration. The patient is mostly Maltese-speaking, is a family member translating at bedside per her request. The patient has 4 days of right ear pain without any drainage from the right ear. She does note slightly decreased hearing from the right ear, pain radiates to the anterior aspect of the ear and occasionally down to the jaw. The patient denies any tooth sensitivity to heat and cold and denies any pain with mastication. The patient denies any associated fever, chills, or sweats. Some mild to moderate, there are no current alleviating factors except for Tylenol, and there are no known exacerbating factors. She denies swimming recently. The patient's last menstrual cycle was one month ago, she denies . PFSH Past Medical History Medical History: Denies Significant Hx Cancer: No Cardiovascular Problems: No Diabetes: No Endocrine: No Genitourinary: No Musculoskeletal: No Respiratory: No ?: Unknown LMP: 11/09/2016 : 3 Para: 2 Miscarriage: 0 : 0 Past Surgical History Narrative Surgical Cholecystectomy Other Surgery: No Social History Alcohol Use: Yes (OCCASINALLY) Tobacco Use: No Substance Use: No Allergies-Medications (Allergen,Severity, Reaction): Coded Allergies: No Known Allergies (Verified , 07/12/06) Reported Meds & Prescriptions Reported Meds & Active Scripts Active No Active Prescriptions or Reported Medications Review of Systems General / Constitutional: No: Fever HENT: Positive: Earache, No: Sore Throat, Neck Pain, Ear Discharge Gastrointestinal: No: Nausea, Vomiting Skin: No Rash Physical Exam Narrative GENERAL: Awake, alert, pleasant 36-year-old female who appears her stated age and is in no acute respiratory distress. SKIN: Focused skin assessment warm/dry. HEAD: Atraumatic. Normocephalic. EYES: Pupils equal and round. No scleral icterus. No injection or drainage. ENT: The left TM is translucent and the left EAC is clear. The right tympanic membranes cannot be visualized. The patient has a cerumen impaction in the right EAC with mild erythema. Positive right tragal tenderness. Oropharynx reveals no erythema or exudate. No visible abscesses along the upper or lower gumline. No tenderness of the right TMJ. NECK: Trachea midline. No JVD. No significant cervical lymphadenopathy noted. MUSCULOSKELETAL: No obvious deformities. No clubbing. No cyanosis. No edema. NEUROLOGICAL: Awake and alert. No obvious cranial nerve deficits. Motor grossly within normal limits. Normal speech. PSYCHIATRIC: Appropriate mood and affect; insight and judgment normal. Data Data Last Documented VS Vital Signs Date Time Temp Pulse Resp B/P (MAP) Pulse Ox O2 Delivery O2 Flow Rate FiO2 12/12/16 09:26 98.5 69 15 123/74 (90) 99 MDM Medical Decision Making Medical Screen Exam Complete: Yes Emergency Medical Condition: Yes Medical Record Reviewed: Yes Differential Diagnosis Differential diagnosis includes cerumen impaction, otitis media, otitis externa , TMJ, trigeminal neuralgia, dental abscess, odontalgia. Narrative Course The right ear was irrigated with warm water by nursing staff. The right EAC was reinspected, still has quite a bit of debris with inflammation. Therefore, the patient will be placed on eardrops for otitis externa, is advised not to place any Q-tips in the affected ear canal, and follow-up with ENT as needed. Diagnosis Primary Impression: Right otitis media Qualified Codes: H66.91 - Otitis media, unspecified, right ear Additional Impression: Cerumen impaction Qualified Codes: H61.21 - Impacted cerumen, right ear Patient Instructions: General Instructions Additional Instructions: Medications as directed. Follow-up with her primary physician and/or ENT. No Q -tips. Ibuprofen as needed for pain. Med/Other Pt SpecificInfo: Prescription(s) given Scripts Ibuprofen (Ibuprofen) 600 Mg Tab 600 MG PO Q6H Y for Pain/Inflammation, #20 TAB 0 Refills Prov: Mike Lopez MD 12/12/16 Ofloxacin Otic (Floxin Otic) 0.3 % Joanna 5 DROP RIGHT EAR DAILY for Infection for 7 Days, #1 BOTTLE 0 Refills Prov: Mike Lopez MD 12/12/16 Disposition: 01 DISCHARGE HOME Condition: Stable Mike Lopez MD Dec 12, 2016 09:44
[2016-12-12] MEDS ORDERED: IBUP-232 PO (10:30)
[2016-12-12] MEDS ORDERED: OFLO1SOL RIGHT EAR (10:30)
[2016-12-12 11:01] VITALS: BP 121/70
== END 2016-12-12 11:03 | disposition home or self-care (01) ==
LOC: NEPD 09:24
DX: H66.91 Otitis media, unspecified, right ear (principal); H61.21 Impacted cerumen, right ear
CPT/HCPCS: 99283